=== PATIENT | female | born 1990 | race Caucasian/White ===

== ENCOUNTER 2018-07-04 12:51 | Outpatient (CLI) | payer MEDICAID, OTHER ==
[~2018-07-04] VITALS: Ht 152.4 cm; Wt 62.0 kg
[2018-07-04] MEDS ORDERED: PREN-93 PO (13:44)
[2018-07-04 13:45] VITALS: BP 110/56; PULSE 104; RESP 18
[2018-07-04 13:46] VITALS: Ht 152.4 cm; Wt 62.0 kg
[2018-07-04] MEDS ORDERED: LACTATED RINGER'S 1,000 ML IV* SCH (14:30)
--- NOTE | 2018-07-04 17:25 | TRIAGE ---
OB Triage Datetime Report Generated by CPN: 07/04/2018 17:25 Datetime: 07/04/2018 17:00 Stage of : OB Triage Maternal Assessment Level of Consciousness: Fully Conscious Labor Evaluation Frequency: NONE Monitor Mode: External Resting Tone [place]: Relaxed Heart Rate FHR Baseline Rate: 135 Monitor Mode: External US Variability: Moderate 6-25 bpm Accelerations: 15X15 Decelerations: None Category: Category I Pain Assessment Pain Scale: 0 Pain Goal: 3 Vaginal Exam Membrane Status: Intact Vaginal Bleeding: None Datetime: 07/04/2018 16:00 Stage of : OB Triage Maternal Assessment Level of Consciousness: Fully Conscious Labor Evaluation Frequency: 8uc/hr Monitor Mode: External Duration (sec)2399: 50-90 Quality: Mild Resting Tone [place]: Relaxed Heart Rate FHR Baseline Rate: 135 Monitor Mode: External US Variability: Moderate 6-25 bpm Accelerations: 15X15 Decelerations: None Category: Category I Pain Assessment Pain Scale: 0 Pain Goal: 3 Vaginal Exam Membrane Status: Intact Vaginal Bleeding: None Datetime: 07/04/2018 15:00 Stage of : OB Triage Maternal Assessment Level of Consciousness: Fully Conscious Labor Evaluation Frequency: NONE Monitor Mode: External Resting Tone [place]: Relaxed Heart Rate FHR Baseline Rate: 135 Monitor Mode: External US Variability: Moderate 6-25 bpm Accelerations: 15X15 Decelerations: None Category: Category I Pain Assessment Pain Scale: 0 Pain Goal: 3 Vaginal Exam Membrane Status: Intact Vaginal Bleeding: None Datetime: 07/04/2018 14:00 Stage of : OB Triage Maternal Assessment Level of Consciousness: Fully Conscious Labor Evaluation Frequency: 3UC/HR Monitor Mode: External Duration (sec)2399: 60-70 Quality: Mild Resting Tone [place]: Relaxed Heart Rate FHR Baseline Rate: 135 Monitor Mode: External US Variability: Moderate 6-25 bpm Accelerations: 15X15 Decelerations: None Category: Category I Pain Assessment Pain Scale: 0 Pain Goal: 3 Vaginal Exam Membrane Status: Intact Vaginal Bleeding: None Datetime: 07/04/2018 13:13 Assessment Type: Triage Maternal Assessment Level of Consciousness: Fully Conscious DTR's/Clonus: DTRs 2+; No Clonus Headache: Denies Blurred Vision: No Respiratory Effort: Unlabored; Regular Rhythm; Equal Expansion Breath Sounds, Left: Clear and Equal Breath Sounds, Right: Clear and Equal Nausea/Vomiting: Denies RUQ Epigastric Pain: Denies Lower Extremities Edema: None Degree: None Upper Extremities Edema: None Degree: None Facial Edema: None Fall Risk Assessment History of Falling: (0) No Secondary Diagnosis: (0) No Ambulatory Aid: (0) Bedrest/Nurse Assist IV Therapy: (0) No Gait: (0) Normal/Bedrest/Immobile Mental Status: (0) Oriented to Own Ability Fall Score: 0 Fall Risk Score Definition: No Risk: No action required Datetime: 07/04/2018 13:12 Time of Arrival: 07/04/2018 12:44 EGA: 29.5 Arrived By: Ambulatory Arrived From: Office Chief Complaint: pt sent in from CLINIC TO [facility]. FOR PTL. Movement: Present Contractions: Denies/Absent Rupture of Membranes: Denies Vaginal Bleeding: None Vaginal Discharge: Denies Recent Sexual Intercouse: Denies Abdominal Trauma: Not Applicable Patient Complaints: None; Cramping Time Provider Notified: 07/04/2018 14:12 Provider Notified: PHYLICIA Initial Plan: EFM/CBC/CMP/UA C/S/COAG/EFW/BPP/CVL/IV HYD. Monitor Mode: External Monitor Mode: External US Datetime: 07/04/2018 13:10 Monitor Mode: External Monitor Mode: External US
--- NOTE | 2018-07-04 17:28 | PN ---
Triage Information Date/Time Reason for visit: Uterine contractions Weeks of Gestation 29+ /Para 1/1 Diabetes: none Hypertention: none Objective Vital Signs Date Temp Pulse Resp B/P (MAP) Pulse Ox O2 O2 Flow FiO2 Time Delivery Rate 07/04/18 98.8 104 18 110/56 Room Air 13:45 (74) Heart Rate: 140's Contractions: None Results/Medications Result Diagram: 07/04/18 1457 07/04/18 1457 Results 24 hrs Laboratory Tests Test 07/04/18 13:15 07/04/18 14:57 Urine Color YELLOW Urine Clarity SLIGHTLY CLOUDY A Urine pH 7.0 Urine Specific [place] 1.008 Urine Ketones NEGATIVE Urine Nitrite NEGATIVE Urine Bilirubin NEGATIVE Urine Urobilinogen NEGATIVE Urine Leukocyte Esterase TRACE A Urine Microscopic RBC 0 Urine Microscopic WBC 4 Urine Squamous Epithelial Cells FEW Urine Amorphous Crystals FEW A Urine Hemoglobin NEGATIVE Urine Glucose NEGATIVE Urine Total Protein NEGATIVE White Blood Count 12.2 H Red Blood Count 3.61 L Hemoglobin 11.2 L Hematocrit 33.8 L Mean Corpuscular Volume 93.6 Mean Corpuscular Hemoglobin 31.0 Mean Corpuscular Hemoglobin Concent 33.1 Red Cell Distribution Width 14.5 Platelet Count 170 Mean Platelet Volume 11.2 H Immature Granulocytes % 1.600 H Neutrophils % 70.7 Lymphocytes % 20.4 Monocytes % 5.4 Eosinophils % 1.6 Basophils % 0.3 Nucleated Red Blood Cells % 0.0 Immature Granulocytes # 0.200 H Neutrophils # 8.7 H Lymphocytes # 2.5 Monocytes # 0.7 Eosinophils # 0.2 Basophils # 0.0 Nucleated Red Blood Cells # 0.0 Prothrombin Time 12.6 Prothrombin Time Ratio 1.0 INR International Normalized Ratio 0.93 Activated Partial Thromboplast Time 28.0 Thrombin Time 13.8 Sodium Level 136 Potassium Level 3.0 L Chloride Level 107 Carbon Dioxide Level 23 Anion Gap 6 Blood Urea Nitrogen 4 L Creatinine 0.33 L Est Glomerular Filtrat Rate mL/min > 60 Glucose Level 95 Calcium Level 8.6 Total Bilirubin 0.1 L Direct Bilirubin 0.00 Indirect Bilirubin 0.1 Aspartate Amino Transf (AST/SGOT) 17 Alanine Aminotransferase (ALT/SGPT) 12 L Alkaline Phosphatase 105 Total Protein 6.0 L Albumin 3.1 L Globulin 2.90 Albumin/Globulin Ratio 1.06 Medications Current Medications Lactated Ringer's 1,000 ml @ 125 mls/hr Q8H IV* Last administered on 07/04/18at 14:44; Admin Dose 125 MLS/HR; Start 07/04/18 at 14:30 Disposition: Discharge Assessment/Plan BPP 03/29 CX 4 cm NO sign of Bleeding or spotting Discharged with precautions Questions answered Follow up with provider TREVON ANGELO M.D. Jul 04, 2018 17:28
== END 2018-07-04 17:44 | disposition home or self-care (01) ==
LOC: OBT 12:51 → L-D 12:51 → OBT 17:44
PROVIDERS: ATTEND Obstetrics & Gynecology
DX: O62.9 Abnormality of forces of labor, unspecified (principal); Z3A.29 29 weeks gestation of pregnancy
CPT/HCPCS: 36415; 76815; 76817; 76818; 80053; 81001; 85025; 85049; 85610; 85670; 85730; 87086; 96360; 96361; J7120; Z7500; G0463

== ENCOUNTER 2018-08-04 07:13 | Inpatient (IN) | payer OTHER ==
[~2018-08-04] VITALS: Ht 152.4 cm; Wt 67.5 kg
[~2018-08-04 07:13] MED LIST: PREN-93 PO
[2018-08-04 07:39] VITALS: Ht 152.4 cm; Wt 67.5 kg
[2018-08-04 07:40] VITALS: BP 125/73; PULSE 97; RESP 18
[2018-08-04] MEDS ORDERED: LACTATED RINGER'S 1,000 ML IV SCH ×2 (08:00→09:49)
[2018-08-04] MEDS ORDERED: TERBUTALINE 1 MG/ML INJ SC ONE (10:00)
[2018-08-04] MEDS: CEFAZOLIN 2 GM/50 ML (PMX) 50 ML IVPB SCH ×2 (10:35→18:30)
[2018-08-04] MEDS: POTASSIUM CHLORIDE 20 MEQ in LACTATED RINGER'S 1,000 ML IV SCH ×2 (11:07→20:13)
[2018-08-04] MEDS ORDERED: TERBUTALINE 1 MG/ML INJ SC PRN (12:30)
[2018-08-04] MEDS: DEXAMETHASONE 4 MG/ML 5 ML INJ IM SCH (18:30)
[2018-08-05] MEDS: CEFAZOLIN 2 GM/50 ML (PMX) 50 ML IVPB SCH ×3 (02:12→21:39)
[2018-08-05] MEDS: POTASSIUM CHLORIDE 20 MEQ in LACTATED RINGER'S 1,000 ML IV SCH ×3 (04:38→21:31)
[2018-08-05] MEDS: DEXAMETHASONE 4 MG/ML 5 ML INJ IM SCH ×2 (06:17→18:41)
--- NOTE | 2018-08-05 17:32 | PN ---
DATE: 08/05/2018 TIME OF SERVICE: 3:30 pm. SUBJECTIVE: The patient feels good. No contractions. OBJECTIVE: VITAL SIGNS: She is afebrile. VITAL SIGNS: Stable. ABDOMEN: Soft. No tenderness noted. heart tones normal. No vaginal bleeding. EXTREMITIES: No calf tenderness. ASSESSMENT: 34 and 2/7 weeks with urinary tract infection and labor. PLAN: Continue with her dexamethasone that is being given and the last dose will be at 6:00 a.m., to sid, 08/06/2018. So she will go home tomorrow after the last dose of betamethasone and she will b e continued on IV antibiotics. The plans were explained to the patient and she understood everything totally. Dictated By: BARAK WOOD/JENY Conf#: [id number] DID#: [id number]
--- NOTE | 2018-08-05 19:24 | PREOPHP ---
DATE OF ADMISSION: 08/04/2018 HISTORY OF PRESENT ILLNESS: This is a 28-year-old lady, 2 para 1, EDC 09/14/2018, at 34 and 1/7 weeks' , admitted to labor and delivery area because of lower abdominal pains and low tyler k pains that started about few hours prior to admission. [facility] and the care was uneventful. PAST PERSONAL HISTORY: No history of diabetes, TB or asthma. ALLERGIES: NO ALLERGIES. SOCIAL HISTORY: The patient does not smoke. She does not drink. MEDICATIONS: She does not take any drugs except her iron and vitamins. GYNECOLOGIC HISTORY: She had menarche at the age of 14, every 28 days interval, 3 to 4 days duration and moderate in amount. FAMILY HISTORY: Grandmother has diabetes. Mother has diabetes and hypertension. She is 2, para 1. Her first delivery was by on 06/09/2016. REVIEW OF SYSTEMS: CARDIOVASCULAR: No chest pains. RESPIRATORY: No cough. GASTROINTESTINAL: No diarrhea, no vomiting. GENITOURINARY: No dysuria. PHYSICAL EXAMINATION: GENERAL: Reveals a conscious, coherent lady and in no acute distress. VITAL SIGNS: Her blood pressure 120/80, pulse rate 80 per minute and respirations 16 per minute. BREASTS: Within normal limits. HEART: Within normal limits. LUNGS: Within normal limits. ABDOMEN: Soft. No organomegaly. PELVIC: Revealed the cervix to be closed, station -3 in cephalic presentation with the bag of water intact. EXTREMITIES: No pedal edema. ADMITTING DIAGNOSIS: A 34 and 1/7 weeks intrauterine , rule out labor. PLAN: The plans were explained to the patient and she understood everything totally. The risks, yari efits and alternatives were discussed with her as well. She had a urine test done and the urine show ed urinary tract infection, so that the patient was started on IV antibiotics, Ancef 2 grams every 8 hours. She was also having contractions every 3 to 4 minutes, so she was given 1 dose of subcutaneou s ____ and the contractions had spaced out. She was started on dexamethasone as well. There is no b etamethasone. Now, with dexamethasone 6 mg IM every 12 hours, to be given for 4 doses. The plans as mentioned were explained to the patient and she understood everything totally. Dictated By: BARAK WOOD/JENY Conf#: [id number] [facility]#: [id number]
[2018-08-06] MEDS: CEFAZOLIN 2 GM/50 ML (PMX) 50 ML IVPB SCH (06:06)
[2018-08-06] MEDS: DEXAMETHASONE 4 MG/ML 5 ML INJ IM SCH (06:54)
--- NOTE | 2018-08-06 09:04 | QN ---
Documentation Comment 34+wks with UTI and CTXs s/p Steroid and Antibiotics BPP 03/29 Currently No CTXs +FM No LOF No VB NST reassuring [employer] occasional CTXs CX closed No cervical change ---> discharged the patient -->Follow up with provider --->Questions answered --->precautions discussed TREVON ANGELO M.D. Aug 06, 2018 09:04
--- NOTE | 2018-08-06 09:05 | DS ---
Date/Time of Note Date/Time of Note DATE: 08/06/18 TIME: 09:04 Discharge Summary Admission/Discharge Info Admit Date/Time Aug 04, 2018 at 09:54 Discharge Date/Time 08/06/2018 Discharge Diagnosis CTXs Patient Condition: Good Hospital Course uneventful Home Meds Reported Medications Vit No.124/Iron/FA ( Vitamin Tablet) 1 Each Tablet, 1 EACH PO DAILY, TAB 07/04/18 Primary Care Provider Not On Staff Doctor Pending Labs Laboratory Tests Test 08/06/18 06:05 Sodium Level 140 mmol/L (135-144) Potassium Level 3.1 mmol/L (3.5-5.1) Chloride Level 110 mmol/L (97-110) Carbon Dioxide Level 23 mmol/L (21-31) Anion Gap 7 (5-13) Blood Urea Nitrogen 3 mg/dl (7-20) Creatinine 0.34 mg/dl (0.44-1.00) Est Glomerular Filtrat Rate mL/min > 60 mL/min (>60) Glucose Level 121 mg/dl (70-220) Calcium Level 8.4 mg/dl (8.4-10.2) Total Bilirubin 0.1 mg/dl (0.2-1.3) Direct Bilirubin 0.00 mg/dl (0.00-0.20) Indirect Bilirubin 0.1 mg/dl (0-1.1) Aspartate Amino Transf (AST/SGOT) 17 IU/L (15-46) Alanine Aminotransferase (ALT/SGPT) 15 IU/L (13-69) Alkaline Phosphatase 114 IU/L (42-121) Total Protein 5.2 g/dl (6.1-8.1) Albumin 2.6 g/dl (3.3-4.9) Globulin 2.60 g/dl (1.3-3.2) Albumin/Globulin Ratio 1.00 TREVON ANGELO M.D. Aug 06, 2018 09:05
--- NOTE | 2018-08-06 19:13 | DS ---
DATE OF ADMISSION: 08/04/2018 DATE OF DISCHARGE: 08/06/2018 HISTORY OF PRESENT ILLNESS: See dictated history and physical. PHYSICAL EXAMINATION: See dictated history and physical. ADMITTING DIAGNOSIS: A 34 and 1/7 weeks intrauterine with labor and the patient saldivar d urine test done. She had urinary tract infection as well. She stayed in the hospital for 2 days a nd on the third day 08/06/2018, she was discharged home. She received terbutaline 2 doses. She also received Ancef 5 doses 2 grams q.8h. She received dexamethasone 6 mg IM q.12 hours for 4 doses. Th e pain had spaced out. She was having like 1 or 2 in an hour. She was discharged home in good and s table condition on general diet and activity was restricted. She was counseled. She was instructed. She was told to come back to the clinic in 1 week. FINAL DIAGNOSES: A 34 and 3/7 weeks intrauterine with labor and urinary tract infe ction. Dictated By: BARAK WODO/JENY Conf#: [id number] DID#: [id number]
== END 2018-08-06 09:00 | disposition home or self-care (01) | DRG 832 ==
LOC: OBT 07:13 → L-D 07:13 → OBT 10:06
PROVIDERS: ADMIT Obstetrics & Gynecology; ATTEND Obstetrics & Gynecology
DX: O23.43 Unspecified infection of urinary tract in pregnancy, third trimester (principal); O47.03 False labor before 37 completed weeks of gestation, third trimester; Z3A.34 34 weeks gestation of pregnancy
CPT/HCPCS: 76815; 76817; 76818; 80053; 81001; 85025; 87086; G0463; J0690; J1100; J3105; J3480; J7120

== ENCOUNTER 2018-09-09 11:49 | Inpatient (IN) | payer OTHER ==
[~2018-09-09] VITALS: Ht 152.4 cm; Wt 66.0 kg
--- NOTE | 2018-09-09 08:28 | PREOPHP ---
DATE OF ADMISSION: 09/09/2018 HISTORY OF PRESENT ILLNESS: This is a 28-year-old lady, 2, para 1, EDC 09/14/2018, at 39 and 2/7 weeks, admitted to labor and delivery area for repeat . She desires to have a repeat C -section. She refused to . The procedures were explained to the patient and she understood ever ything totally. The risks, benefits, and alternatives were discussed with her as well. PAST PERSONAL HISTORY: No history of TB, asthma. ALLERGIES: No allergies. SOCIAL HISTORY: Patient does not smoke. She does not drink. MEDICATIONS: She does not take any drugs except her iron and vitamins. GYNECOLOGIC HISTORY: She had menarche at the age of 14, every 28 days interval, 3 to 4 days duration , and moderate in amount. FAMILY HISTORY: Mother and grandfather on mother's side have diabetes and mother has diabetes and hy pertension. She is 2, para 1. Her first delivery is in 2016 by . REVIEW OF SYSTEMS: CARDIOVASCULAR: No chest pains. RESPIRATORY: No cough. GASTROINTESTINAL: No diarrhea, no vomiting. GENITOURINARY: No dysuria. PHYSICAL EXAMINATION: GENERAL: Reveals a conscious, coherent lady and in no acute distress. VITAL SIGNS: Her blood pressure 120/80, pulse rate 80 per minute, respirations 16 per minute. BREASTS, HEART AND LUNGS: Within normal limits. ABDOMEN: Soft, fundic height 37 cm. heart tones 140 per minute. PELVIC: Revealed the cervix to be 2 to 3 cm dilated, 100% effaced, station floating in cephalic pres entation with the bag of water intact. EXTREMITIES: No pedal edema. ADMITTING DIAGNOSIS: A 39 and 2/7 weeks intrauterine , with 1 previous section. T he patient was planned to have a repeat per patient's request. The risks, benefits, and al ternatives were discussed with her as well. Dictated By: BARAK WOOD/NTS Conf#: [id number] DID#: [id number]
[2018-09-09 12:34] VITALS: Ht 152.4 cm; Wt 66.0 kg
[2018-09-09 12:35] VITALS: BP 129/78; PULSE 87; RESP 18
[2018-09-09] MEDS: LACTATED RINGER'S 1,000 ML IV SCH ×2 (12:55→14:18)
[2018-09-09] MEDS ORDERED: CARBOPROST 250 MCG INJ IM PRN ×2 (13:00→17:00)
[2018-09-09] MEDS ORDERED: MISOPROSTOL 200 MCG TAB PR PRN ×2 (13:00→17:00)
[2018-09-09] MEDS ORDERED: CEFAZOLIN 2 GM/50 ML (PMX) 50 ML IVPB SCH (13:00)
[2018-09-09] MEDS ORDERED: OXYTOCIN 30 UNITS/LR 500 ML IV PRN ×2 (13:00→17:00)
[2018-09-09] MEDS ORDERED: METHYLERGONOVINE 0.2 MG INJ IM PRN ×2 (13:00→17:00)
[2018-09-09] MEDS ORDERED: morphine SULFATE/PF (10 MG/10 ML) INJ ONE (16:05)
[2018-09-09] MEDS ORDERED: OXYTOCIN 10 UNIT INJ ONE ×2 (16:25→16:49)
[2018-09-09] MEDS ORDERED: MIDAZOLAM 1 MG/ML 2 ML INJ ONE (16:29)
--- NOTE | 2018-09-09 16:35 | PREAC ---
Date/Time of Note Date/Time of Note DATE: 09/09/18 TIME: 16:33 Anesthesia Eval and Record Evaluation Time Pre-Procedure Interview DATE: 09/09/18 TIME: 16:04 Age 28 Sex female NPO: 8 hrs Preoperative diagnosis iup @ 39.5 wks., prev. c/s, contractions Planned procedure repeat c/s Past Medical History Past Medical History: Includes : : (2), Para: (1), Gestational age: (39.5 wks.) Surgery & Anesthesia Issues No known issue Meds Anticoagulation: No Beta Jorge within 24 hr: No Reason Beta Jorge not given: Pt. not on B-Jorge Reported Medications Vit No.124/Iron/FA ( Vitamin Tablet) 1 Each Tablet, 1 EACH PO DAILY, TAB 07/04/18 Current Medications Lactated Ringer's 1,000 ml @ 125 mls/hr Q8H IV Last administered on 09/09/18at 14:18; Admin Dose 125 MLS/HR; Start 09/09/18 at 12:36 Cefazolin Sodium/ Dextrose 50 ml @ 100 mls/hr ONCE IVPB ; Start 09/09/18 at 13:00 Oxytocin/Lactated Ringer's 500 ml @ 0 mls/hr ONCE PRN IV .VAGINAL BLEEDING; Start 09/09/18 at 13:00 Methylergonovine Maleate (Methergine) 0.2 mg ONCE PRN IM .VAGINAL BLEEDING; Start 09/09/18 at 13:00 Carboprost Tromethamine (Hemabate) 250 mcg ONCE PRN IM .VAGINAL BLEEDING; Start 09/09/18 at 13:00 Misoprostol (Cytotec) 1,000 mcg ONCE PRN [place] .VAGINAL BLEEDING; Start 09/09/18 at 13:00 Meds reviewed: Yes Allergies Coded Allergies: No Known Allergy (Unverified , 07/04/18) Allergies Reviewed: Yes Labs/Studies Labs Reviewed: Reviewed by anesthesiologist Result Diagram: 09/09/18 1220 Laboratory Tests 09/09/18 12:20 Blood Bank Test 09/09/18 12:20 Antibody Screen NEGATIVE Blood Type O POSITIVE Rh Immune Globulin Candidate NO test: Positive Studies: ECG (n/a), CXR (n/a) Pre-procedure Exam Last vitals Vital Signs Date Temp Pulse Resp B/P (MAP) Pulse Ox O2 O2 Flow FiO2 Time Delivery Rate 09/09/18 98.0 87 18 129/78 Room Air 12:35 (95) Airway: Adequate mouth opening, Adequate thyromental dist Mallampati: Mallampati II Teeth: Normal Lung: Normal Heart: Normal ASA Physical Status ASA physical status: 2 Emergency: E Planned Anesthetic General/MAC: TIVA Neuraxial: Spinal Planned Pain Management Sub-arachniod narcotics, Local by surgeon Pre-operative Attestations Prior to commencing anesthesia and surgery, the patient was re-evaluated, there was verification of: *The patient's identity *The results of appropriate recent lab work and preoperative vital signs *The above evaluation not changing prior to induction *Anesthetic plan, risk benefits, alternative and complications discussed with patient/family; questions answered; patient/family understands, accepts and wishes to proceed. [employer]tered [employer] Executive Director used FREDERICK TODD MD Sep 09, 2018 16:35
[2018-09-09] MEDS ORDERED: LACTATED RINGER'S 1,000 ML IV SCH (16:36)
[2018-09-09] MEDS ORDERED: OXYTOCIN 30 UNITS/LR 500 ML IV SCH ×2 (16:36→19:00)
--- NOTE | 2018-09-09 16:36 | OPPN ---
Date/Time of Note Date/Time of Note DATE: 09/09/18 TIME: 16:35 Operative Report Planned Procedure Procedure date Sep 09, 2018 Procedure(s) REPEAT CSECTION Performed by see signature line Division Traffic Superintendent: TREVON ANGELO M.D. 2nd Division Traffic Superintendent none Pre-procedure diagnosis [id number] IUP PREVIOUS SECTION [id number] Anesthesia Type: Valqc2y spinal Post-Procedure Post-procedure diagnosis 39 WEEKS IUP PREVIOUS CSECTION Findings Live Baby BOY, Apgars 9and 9, [id number] 1OZ 20 INCHES Estimated Blood Loss: 500 - 600 mls Specimen(s) none Grafts/Implant(s) PLACENTA Complication(s) none BARAK WHATLEY MD Sep 09, 2018 16:36
--- NOTE | 2018-09-09 16:37 | OPPN ---
Date/Time of Note Date/Time of Note DATE: 09/10/18 TIME: 00:30 Anesthesia Follow up Anesthesia Follow up Last documented vital signs Vital Signs Date Temp Pulse Resp B/P (MAP) Pulse Ox O2 O2 Flow FiO2 Time Delivery Rate 09/09/18 98.0 87 18 129/78 Room Air 12:35 (95) Respiratory function: WNL Cardiovascular function: WNL Comments S: pt. is pod #1. min. bt pain. min. need for bt pain meds ie. nsaids/opiates. min. n/v. ambulating. O: vss afeb A: min bt pain sec. to it mso4. P: no complications. FREDERICK TODD MD Sep 09, 2018 16:37
[2018-09-09] MEDS ORDERED: LACTATED RINGER'S 1,000 ML IV ONE (16:40)
--- NOTE | 2018-09-09 16:40 | PAC ---
Date/Time of Note Date/Time of Note DATE: 09/09/18 TIME: 20:00 Post-Anesthesia Notes Post-Anesthesia Note Last documented vital signs Vital Signs Date Temp Pulse Resp B/P (MAP) Pulse Ox O2 O2 Flow FiO2 Time Delivery Rate 09/09/18 98.0 87 18 129/78 Room Air 12:35 (95) Activity: WNL Respiratory function: WNL Cardiovascular function: WNL Mental status: Baseline Pain reasonably controlled: Yes Hydration appropriate: Yes Nausea/Vomiting absent: Yes FREDERICK TODD MD Sep 09, 2018 16:40
[2018-09-09] MEDS ORDERED: METOCLOPRAMIDE 10 MG INJ ONE (16:49)
[2018-09-09] MEDS ORDERED: ONDANSETRON 4 MG INJ ONE (16:49)
[2018-09-09] MEDS ORDERED: EPHEDrine 50 MG INJ ONE (16:54)
[2018-09-09] MEDS ORDERED: ONDANSETRON 4 MG INJ IV ONE (17:00)
[2018-09-09] MEDS ORDERED: HYDROmorphONE 0.5 MG/0.5 ML SYG IV PRN ×2 (17:00)
[2018-09-09] MEDS ORDERED: HYDROCODONE/APAP (5/325) TAB PO PRN (17:00)
[2018-09-09] MEDS ORDERED: NALOXONE (0.4 MG/ML) INJ IV PRN (17:00)
[2018-09-09] MEDS ORDERED: MIDAZOLAM 1 MG/ML 2 ML INJ IV PRN (17:00)
[2018-09-09] MEDS ORDERED: LANOLIN HPA 1 PKT TOP PRN (17:00)
[2018-09-09] MEDS ORDERED: ZOLPIDEM 5 MG TAB PO PRN (17:00)
[2018-09-09] MEDS ORDERED: ONDANSETRON 4 MG INJ IV PRN (17:00)
[2018-09-09] MEDS ORDERED: MEPERIDINE 25 MG INJ IV PRN (17:00)
[2018-09-09] MEDS ORDERED: DIPHENHYDRAMINE 50 MG INJ IV PRN ×2 (17:00)
[2018-09-09] MEDS ORDERED: NALBUPHINE HCL (10 MG/1 ML) INJ IV PRN (17:00)
[2018-09-09] MEDS ORDERED: METHYLERGONOVINE 0.2 MG TAB PO PRN (17:00)
[2018-09-09] MEDS: KETOROLAC 30 MG INJ IV PRN (18:12)
[2018-09-09 19:51] VITALS: BP 128/76; PULSE 69; RESP 18
[2018-09-09 20:52] VITALS: BP 111/67; PULSE 57; RESP 18
[2018-09-09] MEDS: SENNA/DOCUSATE NA (8.6MG/50MG) TAB PO SCH (21:00)
[2018-09-09 23:35] VITALS: BP 126/69; PULSE 55; RESP 18
[2018-09-10 04:08] VITALS: BP 114/62; PULSE 73; RESP 18
[2018-09-10 08:30] VITALS: BP 123/75; PULSE 72; RESP 18
[2018-09-10] MEDS: SENNA/DOCUSATE NA (8.6MG/50MG) TAB PO SCH ×2 (09:00→22:23)
[2018-09-10] MEDS: KETOROLAC 30 MG INJ IV PRN (11:39)
[2018-09-10 16:30] VITALS: BP 116/69; PULSE 65; RESP 18
--- NOTE | 2018-09-10 17:18 | OPR ---
DATE OF OPERATION: 09/09/2018 PREOPERATIVE DIAGNOSES: 1. A 39 weeks and 2/7 weeks' intrauterine . 2. One previous section. 3. The patient desires section. POSTOPERATIVE DIAGNOSES: 1. A 39 weeks and 2/7 weeks' intrauterine . 2. One previous section. 3. The patient desires section. OPERATION PERFORMED: Repeat low transverse section. SURGEON: Barak Soriano MD CYLINDER BLOCK MECHANIC: Graham Hilton MD ANESTHESIA: Spinal. ANESTHESIOLOGIST: Ramos Morrissey MD OPERATIVE TECHNIQUE: Under spinal anesthesia, the patient was prepped and draped in the usual fashio n for abdominal surgery. After checking for the effect of the anesthesia, the previous Pfannenstiel scar was excised, a 10 cm skin incision was performed. The incision was carried from the skin up to the fascia. Upon opening the skin up to the fascia, small blood vessels were noted to be oozing and these were all cauterized. Fascia was opened transversely followed by splitting the muscles vertical ly and the peritoneum vertically. Upon opening the abdominal cavity, the bladder blade was put in pl breanna. A small ad was performed on the lower uterine segment. The ad was carried from the serosa up to the endometrium and carried sidewise with the aid of my 2 fingers. My left hand was inserted o n the lower segment of the uterus and the bag of water was ruptured. Clear fluid was noted. Baby's head was delivered. Baby's airways were quickly suctioned with amniotic fluid. The anterior shoulde r, posterior shoulder and rest of the body of the baby were delivered. Baby's cord was clamped after 30 seconds and baby was handed to the NICU team. The cord blood was obtained. Placenta was deliver ed manually and complete. The uterus was exteriorized. The uterus was cleansed with wet lap sponge to make sure that no membranes were left behind. After correct sponge count, the uterus was cl osed in the usual fashion using #1 chromic for the first layer, continuous locking suture was used fo llowed by #1 chromic for the second layer, imbricating sutures were used. Bleeders were checked and there was no bleeding noted. After checking for any bleeders in which there were none, both tubes an d ovaries were inspected. They were healthy looking. The back of the uterus and the broad ligament were checked for any hematoma and there was none noted. The uterus was put back into the pelvic cavi ty. Once again, uterine incision was checked for any bleeders and there was no bleeding noted. Afte r correct sponge count, needle count and instrument count as confirmed by the psychology tech and circulat or, the abdomen was closed in the usual fashion using 0 Vicryl for the peritoneum, 0 Vicryl for the m uscles. For the fascia, 0 Vicryl continuous stitch was used followed by few [id number] suture. For the subcutaneous, it was closed with 3-0 Vicryl and the skin was closed with 3-0 Vicryl, subcuti cular suture was used. The patient tolerated the procedure well. Estimated blood loss about was 600 mL. Vital signs were stable during and after the procedure. She delivered a healthy baby boy at 16 :27 on 09/09/2018 weighing 7 pounds and 1 ounce, 3205 grams, 20 inches long, 9 and 9. Dictated By: BARAK WOOD/JENY Conf#: [id number] DID#: [id number]
--- NOTE | 2018-09-10 17:43 | PN ---
Date/Time of Note Date/Time of Note DATE: 09/10/18 TIME: 17:42 Assessment/Plan VTE Prophylaxis Risk score (from Ns)>0 risk: 2 [place] [facility] [place] contraindicated: low risk/ambulating Pharmacological prophylaxis: NA/contraindicated Pharm contraindication: low risk/ambulating Lines/Catheters IV Catheter Type (from [facility]): Peripheral IV Assessment/Plan Assessment/Plan POSTCSECTION DAY 1 ORDERED ADVANCE DIET TOLERATED CBC ON 3RD POSTOP DAY Result Diagram: 09/10/18 0739 09/10/18 0739 Results 24hrs Laboratory Tests Test 09/10/18 07:39 White Blood Count 18.2 #H Red Blood Count 4.16 L Hemoglobin 12.4 Hematocrit 37.6 Mean Corpuscular Volume 90.4 Mean Corpuscular Hemoglobin 29.8 Mean Corpuscular Hemoglobin Concent 33.0 Red Cell Distribution Width 14.5 Platelet Count 171 Mean Platelet Volume 11.3 H Immature Granulocytes % 1.000 H Neutrophils % 80.1 H Lymphocytes % 12.5 L Monocytes % 6.1 Eosinophils % 0.1 Basophils % 0.2 Nucleated Red Blood Cells % 0.0 Immature Granulocytes # 0.190 H Neutrophils # 14.6 H Lymphocytes # 2.3 Monocytes # 1.1 H Eosinophils # 0.0 Basophils # 0.0 Nucleated Red Blood Cells # 0.0 Sodium Level 137 Potassium Level 3.4 L Chloride Level 101 Carbon Dioxide Level 26 Anion Gap 10 Blood Urea Nitrogen 4 L Creatinine 0.39 L Est Glomerular Filtrat Rate mL/min > 60 Glucose Level 74 Calcium Level 8.7 Subjective 24 Hr Interval Summary Free Text/Dictation POST CSECTION DAY 1 COMPLAIN OF INCISIONAL PAINS GOOD URINE OUTPUT PASSING GAS PER RECTUM NO BOWEL MOVEMENT YET Exam/Review of Systems Exam Vitals Vital Signs Date Temp Pulse Resp B/P (MAP) Pulse Ox O2 O2 Flow FiO2 Time Delivery Rate 09/10/18 98.4 65 18 116/69 Room Air 16:30 (85) 09/10/18 96 04:08 Intake and Output 09/09/18 09/09/18 09/10/18 1515:00 23:00 07:00 IntakeIntake Total 1000 ml 1000 ml OutputOutput Total 1465 ml 1800 ml BalanceBalance 1000 ml -465 ml -1800 ml Exam VITAL SIGNS STABLE: YES AFEBRILE: YES BREAST NOT ENGORGED, NON-TENDER, NO APPRECIABLE MASS: YES LUNGS CLEAR, NO RALES, WHEEZES, RHONCHI: YES SINUS RHYTHM WITHOUT MURMUR: YES ABDOMEN: NON-TENDER FUNDUS: BELOW UMBILICUS BOWEL SOUNDS: PRESENT UTERUS: FIRM INCISION (CLEAN, DRY, AND INTACT): YES LOCHIA: LIGHT DEEP TENDON REFLEXES: 0 EXTREMITIES: NO CALF TENDERNESS EDEMA SCALE: NONE Results Results 24hrs Laboratory Tests Test 09/10/18 07:39 White Blood Count 18.2 #H Red Blood Count 4.16 L Hemoglobin 12.4 Hematocrit 37.6 Mean Corpuscular Volume 90.4 Mean Corpuscular Hemoglobin 29.8 Mean Corpuscular Hemoglobin Concent 33.0 Red Cell Distribution Width 14.5 Platelet Count 171 Mean Platelet Volume 11.3 H Immature Granulocytes % 1.000 H Neutrophils % 80.1 H Lymphocytes % 12.5 L Monocytes % 6.1 Eosinophils % 0.1 Basophils % 0.2 Nucleated Red Blood Cells % 0.0 Immature Granulocytes # 0.190 H Neutrophils # 14.6 H Lymphocytes # 2.3 Monocytes # 1.1 H Eosinophils # 0.0 Basophils # 0.0 Nucleated Red Blood Cells # 0.0 Sodium Level 137 Potassium Level 3.4 L Chloride Level 101 Carbon Dioxide Level 26 Anion Gap 10 Blood Urea Nitrogen 4 L Creatinine 0.39 L Est Glomerular Filtrat Rate mL/min > 60 Glucose Level 74 Calcium Level 8.7 Medications Medication Current Medications Cefazolin Sodium/ Dextrose 50 ml @ 100 mls/hr ONCE IVPB ; Start 09/09/18 at 13:00 Oxytocin/Lactated Ringer's 500 ml @ 0 mls/hr ONCE PRN IV .VAGINAL BLEEDING; Start 09/09/18 at 13:00 Methylergonovine Maleate (Methergine) 0.2 mg Q6H PRN PO .VAGINAL BLEEDING; Start 09/09/18 at 17:00 Acetaminophen/ Hydrocodone Bitart ([place] (5/325)) 1 tab Q4H PRN PO .PAIN 4-6; Start 09/09/18 at 17:00 Acetaminophen/ Hydrocodone Bitart ([place] (5/325)) 2 tab Q4H PRN PO .PAIN 7-10; Start 09/09/18 at 17:00 Ibuprofen (Motrin) 800 mg Q8 PRN PO MILD PAIN LEVEL 1-3; Start 09/09/18 at 17:00 Simethicone (Mylicon) 160 mg Q8H PRN PO .GAS; Start 09/09/18 at 17:00 Senna/Docusate Sodium (Senokot-S) 1 tab BID PO ; Start 09/09/18 at 21:00 Lanolin (Lanolin Hpa) 1 applic BEDSIDE MEDICATION PRN TOP .NIPPLES; Start 09/09/18 at 17:00 Diphtheria/ Tetanus/Acell Pertussis (Adacel) 0.5 ml ONCE ONCE IM* ; Start 09/12/18 at 09:00; Stop 09/12/18 at 09:01 Measles/Mumps/ Rubella Vaccine Live (Mmr Ii Vaccine) 0.5 ml ONCE ONCE SC* ; Start 09/12/18 at 09:00; Stop 09/12/18 at 09:01 Oxytocin/Lactated Ringer's 500 ml @ 0 mls/hr ONCE PRN IV .VAGINAL BLEEDING; Start 09/09/18 at 17:00 Methylergonovine Maleate (Methergine) 0.2 mg ONCE PRN IM .VAGINAL BLEEDING; Start 09/09/18 at 17:00 Carboprost Tromethamine (Hemabate) 250 mcg ONCE PRN IM .VAGINAL BLEEDING; Start 09/09/18 at 17:00 Misoprostol (Cytotec) 1,000 mcg ONCE PRN ME .VAGINAL BLEEDING; Start 09/09/18 at 17:00 Oxytocin/Lactated Ringer's 500 ml @ 125 mls/hr POST IV Last administered on 09/09/18at 19:12; Admin Dose 125 MLS/HR; Start 09/09/18 at 19:00 BARAK WHATLEY MD Sep 10, 2018 17:43
[2018-09-10 20:00] VITALS: BP 123/78; PULSE 94; RESP 18
[2018-09-10] MEDS: IBUPROFEN 800 MG TAB PO PRN (22:23)
[2018-09-11] MEDS: HYDROCODONE/APAP (5/325) TAB PO PRN ×3 (00:13→20:04)
[2018-09-11 05:16] VITALS: BP 108/64; PULSE 68; RESP 20
[2018-09-11] MEDS: IBUPROFEN 800 MG TAB PO PRN (06:14)
[2018-09-11 08:00] VITALS: BP 120/74; PULSE 58; RESP 18
[2018-09-11] MEDS: SENNA/DOCUSATE NA (8.6MG/50MG) TAB PO SCH ×2 (08:39→21:06)
[2018-09-11 15:50] VITALS: BP 119/75; PULSE 69; RESP 18
[2018-09-11 19:25] VITALS: BP 133/78; PULSE 63; RESP 18
--- NOTE | 2018-09-11 20:00 | PN ---
Date/Time of Note Date/Time of Note DATE: 09/11/18 TIME: 20:00 Assessment/Plan VTE Prophylaxis Risk score (from Nsg)>0 risk: 2 SCD applied (from Nsg): No SCD contraindicated: low risk/ambulating Pharmacological prophylaxis: NA/contraindicated Pharm contraindication: low risk/ambulating Lines/Catheters IV Catheter Type (from Nrsg): Saline Lock Assessment/Plan Assessment/Plan POST CSECTION DAY 2 HOME TOMORROW CBC TOMORROW COUNSELED INSTRUCTED PRESCRIPTION GIVEN FOR PAIN RETURN TO CLINIC IN 2 WEEKS CALL OFFICE IF THERE IS ANY PROBLEM OR CONCERN CONTINUE WITH VITAMINS OD AND FERROUS SULFATE 325MG PO TID DIET ADVISED Result Diagram: 09/10/18 0739 09/10/18 0739 Results 24hrs Laboratory Tests Test 09/11/18 06:55 Lab Scanned Report REFERENCE LAB Subjective 24 Hr Interval Summary Free Text/Dictation POST CSECTION DAY 2 LITTLE BOWEL MOVEMENT GOOD URINE OUTPUT FEELS LESS INCISIONAL PAINS Exam/Review of Systems Exam Vitals Vital Signs Date Temp Pulse Resp B/P (MAP) Pulse Ox O2 O2 Flow FiO2 Time Delivery Rate 09/11/18 98.8 69 18 119/75 15:50 (90) 09/11/18 Room Air 08:00 09/10/18 96 04:08 Intake and Output 09/10/18 09/10/18 09/11/18 1515:00 23:00 07:00 OutputOutput Total 700 ml 400 ml BalanceBalance -700 ml -400 ml Exam VITAL SIGNS STABLE: YES AFEBRILE: YES BREAST NOT ENGORGED, NON-TENDER, NO APPRECIABLE MASS: YES LUNGS CLEAR, NO RALES, WHEEZES, RHONCHI: YES SINUS RHYTHM WITHOUT MURMUR: YES ABDOMEN: NON-TENDER FUNDUS: BELOW UMBILICUS BOWEL SOUNDS: PRESENT UTERUS: FIRM INCISION (CLEAN, DRY, AND INTACT): YES LOCHIA: LIGHT DEEP TENDON REFLEXES: 0 EXTREMITIES: NO CALF TENDERNESS EDEMA SCALE: NONE Results Results 24hrs Laboratory Tests Test 09/11/18 06:55 Lab Scanned Report REFERENCE LAB Medications Medication Current Medications Cefazolin Sodium/ Dextrose 50 ml @ 100 mls/hr ONCE IVPB ; Start 09/09/18 at 13:00 Oxytocin/Lactated Ringer's 500 ml @ 0 mls/hr ONCE PRN IV .VAGINAL BLEEDING; Start 09/09/18 at 13:00 Methylergonovine Maleate (Methergine) 0.2 mg Q6H PRN PO .VAGINAL BLEEDING; Start 09/09/18 at 17:00 Acetaminophen/ Hydrocodone Bitart ([place] (5/325)) 1 tab Q4H PRN PO .PAIN 4-6 Last administered on 09/11/18at 15:17; Admin Dose 1 TAB; Start 09/09/18 at 17:00 Acetaminophen/ Hydrocodone Bitart ([place] (5/325)) 2 tab Q4H PRN PO .PAIN 7-10; Start 09/09/18 at 17:00 Ibuprofen (Motrin) 800 mg Q8 PRN PO MILD PAIN LEVEL 1-3 Last administered on 09/11/18at 06:14; Admin Dose 800 MG; Start 09/09/18 at 17:00 Simethicone (Mylicon) 160 mg Q8H PRN PO .GAS; Start 09/09/18 at 17:00 Senna/Docusate Sodium (Senokot-S) 1 tab BID PO Last administered on 09/11/18at 08:39; Admin Dose 1 TAB; Start 09/09/18 at 21:00 Lanolin (Lanolin Hpa) 1 applic BEDSIDE MEDICATION PRN TOP .NIPPLES; Start 09/09/18 at 17:00 Diphtheria/ Tetanus/Acell Pertussis (Adacel) 0.5 ml ONCE ONCE IM* ; Start 08/19 12/06 at 09:00; Stop 09/12/18 at 09:01 Measles/Mumps/ Rubella Vaccine Live (Mmr Ii Vaccine) 0.5 ml ONCE ONCE SC* ; Start 09/12/18 at 09:00; Stop 09/12/18 at 09:01 Oxytocin/Lactated Ringer's 500 ml @ 0 mls/hr ONCE PRN IV .VAGINAL BLEEDING; Start 09/09/18 at 17:00 Methylergonovine Maleate (Methergine) 0.2 mg ONCE PRN IM .VAGINAL BLEEDING; Start 09/09/18 at 17:00 Carboprost Tromethamine (Hemabate) 250 mcg ONCE PRN IM .VAGINAL BLEEDING; Start 09/09/18 at 17:00 Misoprostol (Cytotec) 1,000 mcg ONCE PRN MO .VAGINAL BLEEDING; Start 09/09/18 at 17:00 Oxytocin/Lactated Ringer's 500 ml @ 125 mls/hr POST IV Last administered on 09/09/18at 19:12; Admin Dose 125 MLS/HR; Start 09/09/18 at 19:00 BARAK WHATLEY MD Sep 11, 2018 20:00
[2018-09-12] MEDS: IBUPROFEN 800 MG TAB PO PRN
[2018-09-12 03:35] VITALS: BP 117/66; PULSE 58; RESP 58
[2018-09-12 07:45] VITALS: BP 119/70; PULSE 57; RESP 18
[2018-09-12] MEDS ORDERED: MEASLES,MUMPS,RUBELLA VACCINE INJ SC* ONE (09:00)
[2018-09-12] MEDS: SENNA/DOCUSATE NA (8.6MG/50MG) TAB PO SCH (09:00)
[2018-09-12] MEDS ORDERED: DIPHTH/TET/ACEL PERTUSS (ADULT) 0.5 ML VIAL IM* ONE (09:00)
--- NOTE | 2018-09-13 16:06 | DELSUM ---
Delivery Summary A-C Datetime Report Generated by CPN: 09/13/2018 16:06 DELIVERY PERSONNEL Millinery Teacher: Philippe, Ana MATERNAL INFORMATION Delivery Anesthesia: Spinal Medications in Delivery: SEE ANESTHESIA NOTES Delivery QBL (ml): 600 Placenta Cultured: No Maternal Complications: None LABOR SUMMARY EDC: 09/14/2018 00:00 No. Babies in Womb: 1 Attempted: No Labor Anesthesia: None LABOR INFORMATION Reason for Induction: Not Applicable Oxytocin: N/A Group B Beta Strep: Negative Antibiotics # of Doses: 1 Antibiotics Time of Last Dose: 09/09/2018 16:20 Steroids Given: None Reason Steroids Not Administered: Not Applicable MEMBRANES Membranes Rupture Method: Artificial Rupture of Membranes: 09/09/2018 16:27 Length of Rupture (hr): 0.00 Amniotic Fluid Color: Clear Amniotic Fluid Amount: Moderate Amniotic Fluid Odor: None STAGES OF LABOR Stage 3 hr: 0 Stage 3 min: 1 CSECTION DELIVERY Primary Indication: Repeat Elective Secondary Indication: N/A CSection Urgency: Elective CSection Incidence: Repeat Labor: No Labor Elective: Elective CSection Incision: Lower Uterine Transverse BABY A INFORMATION Infant Delivery Date/Time: 09/09/2018 16:27 Method of Delivery: Born in Route : No : N/A Forceps: N/A Vacuum Extraction: N/A Shoulder Dystocia : N/A SHOULDER DYSTOCIA BABY A Infant Delivery Date/Time: 09/09/2018 16:27 PRESENTATION/POSITION BABY A Presentation: Cephalic Cephalic Presentation: Vertex Breech Presentation: N/A PLACENTA INFORMATION BABY A Placenta Delivery Time : 09/09/2018 16:28 Placenta Method of Delivery: Manual Removal Placenta Status: Delivered SCORES BABY A Heart Rate 1 min: >100 bpm Resp Effort 1 min: Good Cry Reflex Irritability 1 min: Cough/Sneeze/Pulls Away Muscle Tone 1 min: Active Motion Color 1 min: Body [place], Extremit Blue Resuscitation Effort 1 min: Tactile Stimulation SCORE 1 MIN: 9 Heart Rate 5 min: >100 bpm Resp Effort 5 min: Good Cry Reflex Irritability 5 min: Cough/Sneeze/Pulls Away Muscle Tone 5 min: Active Motion Color 5 min: Body [place], Extremit Blue Resuscitation Effort 5 min: Tactile Stimulation SCORE 5 MIN: 9 INFANT INFORMATION BABY A Gestational Age at Delivery: 39.2 Gestational Status: Full Term- 39- 40.6 Weeks Infant Outcome : Liveborn Condition : Stable Infant Sex: Male IDENTIFICATION/MEDS BABY A ID Band Number: [id number] ID Band Location: Right Leg; Left Arm Sensor Applied: Yes Sensor Number: [id number] Sensor Location : Cord Clamp Vitamin K Given : Not Given Erythromycin Given: Not Given WEIGHT/LENGTH BABY A Birthweight (gm): 3205 Weight (lb): 7 Infant Weight (oz): 1 Infant Length (in): 20.00 Infant Length (cm): 50.80 CORD INFORMATION BABY A No. Cord Vessels: 3 Nuchal Cord : N/A Cord Blood Taken: Yes Infant Suction: Mouth; Nose ASSESSMENT BABY A Complications: None Physical Findings at Delivery: Within Normal Limits Respirations: Appears Normal General Ledger Bookkeeper/ALS Called : No Care By: RT Angel/ CELENA Perez Transferred To: Remains with Mother
--- NOTE | 2018-09-16 01:54 | DS ---
DATE OF ADMISSION: 09/09/2018 DATE OF DISCHARGE: 09/12/2018 This is a 28-year-old lady, 2, para 1, EDC of 09/14/2018 at 39 and 2/7 weeks admitted for rep eat . HISTORY OF PRESENT ILLNESS: See dictated history and physical. PHYSICAL EXAMINATION: See dictated history and physical. ADMITTING DIAGNOSIS: A 39 and 2/7 weeks intrauterine with 1 previous section. HOSPITAL COURSE: The patient underwent a repeat low transverse section on 09/09/2018. She tolerated the procedure well. She did have good postoperative course. The diet was advanced from li quid to general diet. She had good bowel movement postoperatively. She has less pain on the third p ostoperative day so she was discharged home on general diet and activity was restricted. She was cou nseled. She was instructed. She was given prescription for pain. She was told to come back to the clinic in 2 weeks. She was told to continue to take her iron and vitamins at home. The hematocrit o n discharge is 37 and hemoglobin 11.8. FINAL DIAGNOSIS: A 39 and 2/7 weeks intrauterine , with 1 previous section and del ivered. Dictated By: BARAK WHATLEY MD NS/NTS Conf#: [id number] DID#: [id number] CC: BARAK WHATLEY MD;*End*
== END 2018-09-12 16:06 | disposition home or self-care (01) | DRG 788 ==
LOC: L-D 11:49 → PP1 20:28
PROVIDERS: ADMIT Obstetrics & Gynecology; ATTEND Obstetrics & Gynecology
PROC: 0HB7XZZ Excision of Abdomen Skin, External Approach (ICD-10-PCS; 2018-09-09)
PROC: 10D00Z1 Extraction of Products of Conception, Low, Open Approach (ICD-10-PCS; principal; 2018-09-09 15:30)
DX: O34.211 Maternal care for low transverse scar from previous cesarean delivery (principal); G89.18 Other acute postprocedural pain; Z3A.39 39 weeks gestation of pregnancy; Z37.0 Single live birth
CPT/HCPCS: 80048; 85025; 85610; 85730; 86592; 86850; 86900; 86901; 99464; J0690; J1170; J1885; J2250; J2274; J2405; J2590; J2765; J7120